=== PATIENT | male | born 1940 | race Caucasian/White ===

== ENCOUNTER 2017-01-17 14:32 | Emergency (ER) | payer MEDICARE ==
[~2017-01-17] VITALS: Ht 185.4 cm; Wt 113.4 kg
[~2017-01-17 14:32] MED LIST: ASPI-482 PO; CARB200T PO; CIPR500T PO; DOCU100T5 PO; GABA-586 PO; OXYC-327 PO; SIMV40TA3 PO
[2017-01-17 15:30] VITALS: BP 180/82
[2017-01-17] MEDS ORDERED: GABA-586 PO (15:34)
--- NOTE | 2017-01-17 15:34 | PHYS DOC ---
Past Medical History Past Medical History: CVA, Other Additional Past Medical Histor: trigeminal neuralgia Past Surgical History: Other Additional Past Surgical Histo: trigeminal neuralgia procedure; endardectomy Alcohol Use: None Drug Use: None Adult General Chief Complaint Chief Complaint: FACE PROBLEM [facility] HPI Patient is a 77 year old male with a history of trigeminal neuralgia presents the ED complaining of left facial pain 3 days. Patient states he had a percutaneous balloon plasty completed [address] Meeks and has not had any complications until 3 days ago. Patient states the symptoms started 3 days ago. Describes the pain as sharp and shooting. Rates it as 10 out of 10. States same symptoms as previous exacerbations of trigeminal neuralgia. States he was told by Dr. Aguilar's office to come to the ED. Denies blurry vision, headache, nausea/vomiting, extremity weakness, gait instability, chest pain, shortness of breath, weakness or fever. Review of Systems Review of Systems Constitutional: Denies fever or chills [] Eyes: Denies change in visual acuity, redness, or eye pain [] HENT: Denies nasal congestion or sore throat [] Respiratory: Denies cough or shortness of breath [] Cardiovascular: No additional information not addressed in HPI [] GI: Denies abdominal pain, nausea, vomiting, bloody stools or diarrhea [] : Denies dysuria or hematuria [] Musculoskeletal: Denies back pain or joint pain [] Integument: Denies rash or skin lesions [] Neurologic: Denies headache, focal weakness or sensory changes [] Endocrine: Denies polyuria or polydipsia [] Allergies Allergies Allergies Coded Allergies Type Severity Reaction Last Updated Verified No Known Drug Allergies 05/15/15 No Physical Exam Physical Exam Constitutional: Well developed, well nourished, no acute distress, non-toxic appearance. [] HENT: Normocephalic, atraumatic, bilateral external ears normal, oropharynx moist, no oral exudates, nose normal. [] Eyes: PERRLA, EOMI, conjunctiva normal, no discharge. [] Neck: Normal range of motion, no tenderness, supple, no stridor. [] Cardiovascular:Heart rate regular rhythm, no murmur [] Lungs & Thorax: Bilateral breath sounds clear to auscultation [] Abdomen: Bowel sounds normal, soft, no tenderness, no masses, no pulsatile masses. [] Skin: Warm, dry, no erythema, no rash. [] Back: No tenderness, no CVA tenderness. [] Extremities: No tenderness, no cyanosis, no clubbing, ROM intact, no edema. [] Neurologic: Alert and oriented X 3, normal motor function, normal sensory function, no focal deficits noted. LEFT FACIAL PAIN TO TOUCH IN TRIGEMINAL NERVE DISTRIBUTION. NO FACIAL WEAKNESS. [] Psychologic: Affect normal, judgement normal, mood normal. [] Current Patient Data Vital Signs Vital Signs Date Time Temp Pulse Resp B/P (MAP) Pulse Ox O2 Delivery O2 Flow Rate FiO2 01/17/17 15:30 67 18 180/82 (114) 93 Room Air 01/17/17 15:00 97.2 97.2 EKG EKG [] Radiology/Procedures Radiology/Procedures [] Course & Med Decision Making Course & Med Decision Making Pertinent Labs and Imaging studies reviewed. (See chart for details) Spoke with Dr. Aguilar, Neurologist at bedside. Agrees with assessment and plan of discharging on gabapentin which has worked for patient in the past and following up in his office in 2-3 weeks. No emergent imaging recommended. Discussed plan with patient. Prescribed gabapentin. Discussed reasons to return to the ED. Patient understands and agrees with plan. [] Dragon Disclaimer Dragon Disclaimer This electronic medical record was generated, in whole or in part, using a voice recognition dictation system. Departure Departure Impression: Primary Impression: Trigeminal neuralgia of left side of face Disposition: 01 HOME, SELF-CARE Condition: IMPROVED Referrals: MIGNON CHAVARRIA MD (PCP) Patient Instructions: Trigeminal Neuralgia Scripts Gabapentin (GABAPENTIN) 300 Mg Capsule 300 MG PO TID, #30 CAP Prov: TERRELL RIOS 01/17/17 TERRELL RIOS Jan 17, 2017 15:34
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
== END 2017-01-17 15:36 | disposition home or self-care (01) ==
LOC: ER 14:32
DX: G50.0 Trigeminal neuralgia (principal); Z86.73 Personal history of transient ischemic attack (TIA), and cerebral infarction without residual deficits; Z98.890 Other specified postprocedural states
CPT/HCPCS: 99283